=== PATIENT | female | born 1985 | race African-American/Black ===

== ENCOUNTER 2018-04-10 08:32 | Emergency (ER) | payer OTHER | END 2018-04-10 09:22 | disposition home or self-care (01) | LOC: BURERS 08:32 | DX: J11.1 Influenza due to unidentified influenza virus with other respiratory manifestations (principal); F17.210 Nicotine dependence, cigarettes, uncomplicated | CPT/HCPCS: 87804; 99283 ==

== ENCOUNTER 2018-05-05 13:08 | Emergency (ER) | payer OTHER ==
[2018-05-05 13:41] LABS: Bilirubin Negative (Negative); Blood, Urine Large (Negative); Clarity SLIGHTLY (Clear); Glucose, Urine (Dipstick) Negative (Negative); Leukocyte Small (Negative); Nitrite Negative (Negative); Protein, Urine (Dipstick) 100 mg/dL (Neg-Trace); Urobilinogen 0.2 mg/dL (0.2-1.0)
[2018-05-05 13:42] LABS: Bacteria/HPF Rare-Few HPF (None Seen); Crystals/HPF None Seen HPF (Negative); Hyaline Casts/LPF NONE SEEN LPF (0-3 Hyaline); Other Casts/LPF None Seen LPF (0-3 Hyaline); Oval Fat Bodies/HPF None Seen HPF (None Seen); Renal Epithelial None Seen HPF (0-3); Sperm/HPF None Seen HPF (None Seen); Squamous Epithelial 0-3 HPF (0-3); Transitional Epithelial NONE SEEN HPF (0-3); Trichomonas/HPF None Seen HPF (None Seen); WBC/HPF 0-3 HPF (0-3); Yeast-All Forms None Seen HPF (None Seen)
--- NOTE | 2018-05-05 17:35 | RAD ---
CHEST TWO VIEWS: 05/05/18 No fracture of the ribs was appreciated, though dedicated views would show smaller fractures. The ramon gs are clear and fully inflated. No infiltrate or effusion was seen. The heart is normal in size and the mediastinum is normal in appearance. IMPRESSION: No acute thoracic findings. Exam unchanged from 05/10/10. POS: HOME
== END 2018-05-05 13:53 | disposition home or self-care (01) ==
LOC: BURERS 13:08
DX: S29.011A Strain of muscle and tendon of front wall of thorax, initial encounter (principal); F20.9 Schizophrenia, unspecified; F31.9 Bipolar disorder, unspecified; F17.210 Nicotine dependence, cigarettes, uncomplicated; X50.1XXA Overexertion from prolonged static or awkward postures, initial encounter
CPT/HCPCS: 71046; 81003; 81015

== ENCOUNTER 2018-08-06 16:08 | Emergency (ER) | payer OTHER ==
[2018-08-06] MEDS ORDERED: AMOXicillin 250 MG CAP ONE (16:26)
[2018-08-06] MEDS ORDERED: HYDROcodone/Acetaminophen 10/325 mg Tablet ONE (16:27)
== END 2018-08-06 16:32 | disposition home or self-care (01) ==
LOC: BURERS 16:08
DX: K08.89 Other specified disorders of teeth and supporting structures (principal); F31.9 Bipolar disorder, unspecified; F20.9 Schizophrenia, unspecified; F17.210 Nicotine dependence, cigarettes, uncomplicated
CPT/HCPCS: 99282

== ENCOUNTER 2019-03-27 12:00 | Emergency (ER) | payer OTHER | END 2019-03-27 12:36 | disposition home or self-care (01) | LOC: BURERS 12:00 | DX: K02.9 Dental caries, unspecified (principal); M54.5 Low back pain; F31.9 Bipolar disorder, unspecified; F20.9 Schizophrenia, unspecified; Z87.891 Personal history of nicotine dependence | CPT/HCPCS: 99281 ==

== ENCOUNTER 2019-06-23 12:03 | Emergency (ER) | payer OTHER ==
[2019-06-23 13:12] LABS: Pregnancy Test - Urine (BHCG) Negative (Negative); Pregu Control Background? CLEAR/WHITE (CLR/WHITE); Pregu Control Bar Appear? YES (CONTROL BAR); Specific Gravity 1.002 (1.002-1.036)
--- NOTE | 2019-06-23 14:50 | CT ---
CT BRAIN WITHOUT CONTRAST: Date: 06-23-2019 FINDINGS: A noncontrast CT shows normal sized ventricles with no shift. No intracranial bleeding or extraaxial hematoma was present. There is no sign of stroke, mass, or edema. The skull appears intact. The visib le paranasal sinuses and mastoid air cells are clear. There may be a retention cyst in the medial lef t frontal sinus. IMPRESSION: No acute intracranial findings. POS: HOME
--- NOTE | 2019-06-23 14:51 | CT ---
CT CERVICAL SPINE: Date: 06-23-[address] was done following trauma. FINDINGS: There is loss of the normal cervical lordosis which may be due to muscle spasm. No fracture, dislocat ion, or disc space narrowing was seen. The facet joints appear normal. The C1-2 dens distance is norm al. The anterior soft tissues are not thickened. IMPRESSION: Other than loss of the normal cervical lordosis, no acute findings. POS: HOME
--- NOTE | 2019-06-23 17:10 | CT ---
CT OF THE THORACIC SPINE 06/23/[address] of the thoracic spine was done following trauma. Axial slices were acquired followed by cor onal and sagittal reconstructions. No fracture, dislocation, or disc space narrowing was seen at any thoracic level. All vertebrae appea r intact. The paravertebral soft tissues were unremarkable. IMPRESSION: No acute traumatic findings. Preliminary reports for all scans on this patient called to Dr. Su at 1353 on 06/23/19. POS: HOME
== END 2019-06-23 14:30 | disposition home or self-care (01) ==
LOC: BURERS 12:03
DX: S16.1XXA Strain of muscle, fascia and tendon at neck level, initial encounter (principal); S29.012A Strain of muscle and tendon of back wall of thorax, initial encounter; F31.9 Bipolar disorder, unspecified; F20.9 Schizophrenia, unspecified; Z87.891 Personal history of nicotine dependence; V43.52XA Car driver injured in collision with other type car in traffic accident, initial encounter
CPT/HCPCS: 70450; 72125; 72128; 81025; L0120

== ENCOUNTER 2019-06-26 09:17 | Emergency (ER) | payer OTHER | END 2019-06-26 09:39 | disposition home or self-care (01) | LOC: BURERS 09:17 | DX: S39.012A Strain of muscle, fascia and tendon of lower back, initial encounter (principal); F31.9 Bipolar disorder, unspecified; F20.9 Schizophrenia, unspecified; B19.10 Unspecified viral hepatitis B without hepatic coma; Z87.891 Personal history of nicotine dependence; X50.0XXA Overexertion from strenuous movement or load, initial encounter | CPT/HCPCS: 99283 ==

== ENCOUNTER 2020-10-17 13:22 | Emergency (ER) | payer OTHER ==
[2020-10-17] MEDS ORDERED: predniSONE 20 MG TAB ONE (13:58)
[2020-10-17] MEDS ORDERED: Ibuprofen 200 MG TAB ONE (13:58)
== END 2020-10-17 14:29 | disposition home or self-care (01) ==
LOC: BURERS 13:22
DX: S43.402A Unspecified sprain of left shoulder joint, initial encounter (principal); Z87.891 Personal history of nicotine dependence; X58.XXXA Exposure to other specified factors, initial encounter
CPT/HCPCS: J7512

== ENCOUNTER 2021-08-01 19:03 | Emergency (ER) | payer OTHER | END 2021-08-01 19:30 | disposition home or self-care (01) | LOC: BURERS 19:03 | DX: M77.51 Other enthesopathy of right foot and ankle (principal); Z87.891 Personal history of nicotine dependence | CPT/HCPCS: 99282 ==

== ENCOUNTER 2021-09-05 17:02 | Emergency (ER) | payer OTHER ==
[2021-09-05] MEDS ORDERED: Acetaminophen 325 MG TAB ONE (17:20)
[2021-09-05] MEDS ORDERED: Ibuprofen 200 MG TAB ONE (17:20)
[2021-09-05] MEDS ORDERED: Acetaminophen 325 MG Suppository ONE (17:20)
== END 2021-09-05 17:46 | disposition home or self-care (01) ==
LOC: BURERS 17:02
DX: S46.012A Strain of muscle(s) and tendon(s) of the rotator cuff of left shoulder, initial encounter (principal); Z87.891 Personal history of nicotine dependence; Y04.0XXA Assault by unarmed brawl or fight, initial encounter

== ENCOUNTER 2021-12-27 19:56 | Emergency (ER) | payer OTHER ==
[2021-12-27 20:37] LABS: Bilirubin Negative (Negative); Blood, Urine Large (Negative); Clarity Slightly Cloudy (Clear); Glucose, Urine (Dipstick) Negative (Negative); Ketone, Urine Negative (Negative); Leukocyte Trace (Negative); Nitrite Negative (Negative); Protein, Urine (Dipstick) 100 mg/dL (Neg-Trace); Urobilinogen 0.2 mg/dL (Less than 2); pH, Urine 6.5 (5.0-9.0)
[2021-12-27 20:46] LABS: Pregnancy Test - Urine (BHCG) Negative (Negative); Pregu Control Background? CLEAR/WHITE (CLR/WHITE); Pregu Control Bar Appear? YES (CONTROL BAR)
[2021-12-27 20:47] LABS: Bacteria/HPF None Seen HPF (None Seen); RBC/HPF Greater than 50 HPF (0-3); Squamous Epithelial 0-3 HPF (0-3); WBC/HPF 0-3 HPF (0-3)
[2021-12-27] MEDS ORDERED: Ketorolac Tromethamine 30 MG/ML VIAL ONE (21:32)
== END 2021-12-27 21:41 | disposition home or self-care (01) ==
LOC: BURERS 19:56
DX: M62.830 Muscle spasm of back (principal); I10 Essential (primary) hypertension; F17.210 Nicotine dependence, cigarettes, uncomplicated
CPT/HCPCS: 81003; 81015; 81025; 96372; 99283; J1885

== ENCOUNTER 2022-03-25 17:51 | Emergency (ER) | payer OTHER ==
[2022-03-25] MEDS ORDERED: Ibuprofen 200 MG TAB ONE (18:39)
== END 2022-03-25 19:00 | disposition home or self-care (01) ==
LOC: BURERS 17:51
DX: S39.012A Strain of muscle, fascia and tendon of lower back, initial encounter (principal); M62.830 Muscle spasm of back; I10 Essential (primary) hypertension; F17.210 Nicotine dependence, cigarettes, uncomplicated; V49.40XA Driver injured in collision with unspecified motor vehicles in traffic accident, initial encounter; Y92.410 Unspecified street and highway as the place of occurrence of the external cause
CPT/HCPCS: 72100; 72170

== ENCOUNTER 2022-03-28 12:15 | Emergency (ER) | payer OTHER | END 2022-03-28 12:42 | disposition home or self-care (01) | LOC: BURERS 12:15 | DX: S46.912A Strain of unspecified muscle, fascia and tendon at shoulder and upper arm level, left arm, initial encounter (principal); M54.50 Low back pain, unspecified; F17.210 Nicotine dependence, cigarettes, uncomplicated; V89.2XXA Person injured in unspecified motor-vehicle accident, traffic, initial encounter | CPT/HCPCS: 99283 ==

== ENCOUNTER 2022-04-01 10:27 | Emergency (ER) | payer OTHER ==
[2022-04-01] MEDS ORDERED: Ondansetron ODT 4 MG TAB ONE (10:59)
[2022-04-01 11:01] LABS: #Basophils 0.1 thou/uL (0.0-0.2); #Eosinphils 0.1 thou/uL (0.0-0.7); #Lymphocytes 1.7 thou/uL (1.20-3.40); #Monocytes 0.9 thou/uL (0.11-0.59); #Neutrophils 8.2 thou/uL (1.40-6.50); %Basophils 0.7 % (0.0-1.0); %Eosinophils 0.9 % (0.0-10.0); %Lymphocytes 15.3 % (21.0-51.0); %Monocytes 8.3 % (0.0-10.0); %Neutrophils 74.7 % (42.0-75.0); Hemoglobin 14.6 g/dL (12.0-16.0); Mean Corpuscular HGB CONC 33.3 g/dL (32.0-36.0); Mean Corpuscular Hemoglobin 32.2 pg (27.0-31.0); Mean Corpuscular Volume 96.8 fl (78.0-98.0); Mean Platelet Volume 5.3 fL (7.4-10.4); Platelet Count 557 10x3/uL (130-400); RBC Distribution Width 12.4 % (11.5-14.5); Red Blood Cell (RBC) Count 4.52 mill/uL (4.20-5.40)
[2022-04-01 11:10] LABS: Bilirubin Negative (Negative); Blood, Urine Negative (Negative); Glucose, Urine (Dipstick) Negative (Negative); Ketone, Urine 15 mg/dL (Negative); Leukocyte Small (Negative); Nitrite Negative (Negative); Protein, Urine (Dipstick) 30 mg/dL (Neg-Trace); Specific Gravity, Urine 1.015 (1.005-1.030)
[2022-04-01 11:13] LABS: ALT (SGPT) 24 U/L (8-55); AST (SGOT) 28 U/L (5-34); Albumin 4.9 g/dL (3.5-5.0); Alkaline Phosphatase 65 U/L (40-110); Anion Gap 14 mmol/L (10-20); BUN (Urea Nitrogen) 10 mg/dL (7.0-18.7); Bilirubin, Total 0.5 mg/dL (0.2-1.2); Calc. Creatinine Clearance 0 mL/min (70-130); Calcium 10.1 mg/dL (7.8-10.44); Carbon Dioxide 24 mmol/L (22-29); Chloride 102 mmol/L (98-107); Estimated GFR 96; Glucose 96 mg/dL (70-105); Lipase 21 U/L (8-78); Magnesium 1.9 mg/dL (1.6-2.6); Potassium 3.9 mmol/L (3.5-5.1); Protein, Total 8.9 g/dL (6.0-8.3); Sodium 136 mmol/L (136-145)
[2022-04-01 11:18] LABS: Clarity Hazy (Clear); pH, Urine Greater/Equal 9.0 (5.0-9.0)
[2022-04-01 11:19] LABS: Bacteria/HPF 1+ HPF (None Seen); RBC/HPF 0-3 HPF (0-3); Squamous Epithelial 0-3 HPF (0-3)
[2022-04-01 11:22] LABS: Pregnancy Test - Urine (BHCG) Negative (Negative); Pregu Control Background? CLEAR/WHITE (CLR/WHITE); Pregu Control Bar Appear? YES (CONTROL BAR); Specific Gravity 1.015 (1.002-1.036)
[2022-04-01 11:28] LABS: Amphetamine Not Detected (NotDetected); Barbiturates Screen Not Detected (NotDetected); Benzodiazepine Screen Not Detected (NotDetected); Cocaine Metabolite Screen Detected (NotDetected); Medtox Control Line Valid? VALID (VALID); Methadone Not Detected (NotDetected); Methamphetamine Not Detected (NotDetected); Opiate Screen Not Detected (NotDetected); Oxycodone Screen Not Detected (NotDetected); Phencyclidine (PCP) Not Detected (NotDetected); THC/Cannabinoid Screen Detected (NotDetected); Tricyclic Screen Not Detected (NotDetected)
== END 2022-04-01 12:05 | disposition home or self-care (01) ==
LOC: BURERS 10:27
DX: F14.10 Cocaine abuse, uncomplicated (principal); F17.210 Nicotine dependence, cigarettes, uncomplicated
CPT/HCPCS: 36415; 74176; 80053; 80306; 81003; 81015; 81025; 83690; 83735; 85025; Q0162

== ENCOUNTER 2022-06-18 21:07 | Emergency (ER) | payer OTHER ==
[2022-06-18] MEDS ORDERED: Amoxicillin/Potassium Clav 875 MG TAB ONE (21:30)
== END 2022-06-18 21:32 | disposition home or self-care (01) ==
LOC: BURERS 21:07
DX: S81.851D Open bite, right lower leg, subsequent encounter (principal); L08.89 Other specified local infections of the skin and subcutaneous tissue; F17.210 Nicotine dependence, cigarettes, uncomplicated; W54.0XXD Bitten by dog, subsequent encounter
CPT/HCPCS: 99282

== ENCOUNTER 2024-10-29 14:52 | Emergency (ER) | payer MEDICAID, OTHER ==
[2024-10-29] MEDS ORDERED: Ketorolac Tromethamine 30 MG (1 mL) VIAL ONE (15:09)
[2024-10-29] MEDS ORDERED: Amoxicillin/Potassium Clav 875 MG TAB ONE (15:09)
== END 2024-10-29 15:28 | disposition home or self-care (01) ==
LOC: BURERS 14:52
DX: K04.7 Periapical abscess without sinus (principal); K03.81 Cracked tooth; K02.9 Dental caries, unspecified; F17.210 Nicotine dependence, cigarettes, uncomplicated
CPT/HCPCS: J1885